=== PATIENT | male | born 1950 | race Caucasian/White ===

== ENCOUNTER → 2016-10-05 | Outpatient (CLI) | payer OTHER, BC | LOC: BHFA 14:00 | PROVIDERS: ATTEND Internal Medicine Cardiovascular Disease | DX: I47.1 Supraventricular tachycardia (principal) ==

== ENCOUNTER → 2016-12-17 | Outpatient (CLI) | payer OTHER, BC | LOC: BHFA 11:15 | PROVIDERS: ATTEND Internal Medicine Cardiovascular Disease | DX: I47.1 Supraventricular tachycardia (principal) ==

== ENCOUNTER 2016-12-28 06:44 | Observation (INO) | payer OTHER, BC ==
[2016-12-28] MEDS ORDERED: MIDAZOLAM 2 MG/2 ML VIAL IVP ONE (06:49)
[2016-12-28] MEDS ORDERED: NS 1,000 ML IV ONE (06:49)
--- NOTE | 2016-12-28 07:36 | CPEKG ---
Heart Rate: 76 RR Interval: 789 P-R Interval: 176 QRSD Interval: 100 QT Interval: 396 QTC Interval: 446 P [place]: 33 QRS [place]: -8 T Wave [place]: 24 EKG Severity - NORMAL ECG - EKG Impression: SINUS RHYTHM Electronically Signed By: Ar Larry 28-Dec-2016 08:35:26
[2016-12-28 08:00] LABS: % IMMATURE GRANULYOCYTES 0.4 % (0.0-1.1); ABSOLUTE IMMATURE GRANULOCYTES 0.05 10^3/uL (0.00-0.10); ADD DIFF? NO; ADD MORPH? NO; ADD SCAN? NO; ATYPICAL LYMPHOCYTE FLAG 0 (0-99); FRAGMENT RBC FLAG 0 (0-99); HEMATOCRIT 41.1 % (40.0-51.0); HEMOGLOBIN 14.3 g/dL (13.7-17.5); LEFT SHIFT FLG 0 (0-99); LIPEMIA HEMOLYSIS FLAG 90 (0-99); MEAN CELL HEMOGLOBIN 32.8 pg (27.9-34.1); MEAN CELL HEMOGLOBIN CONCENTR. 34.8 g/dL (32.4-36.7); MEAN CELL VOLUME 94.3 fL (81.5-99.8); MEAN PLATELET VOLUME 8.9 fL (8.7-11.7); PLATELET CLUMPS FLAG 0 (0-99); PLATELET COUNT 235 10^3/uL (150-400); RED BLOOD CELL COUNT 4.36 10^6/uL (4.40-6.38); RED CELL DISTRIBUTION WIDTH 12.4 % (11.5-15.2)
[2016-12-28 08:08] LABS: INR 1.11 (0.83-1.16); PROTIME(PATIENT) 14.2 SEC (12.0-15.0)
[2016-12-28 08:09] LABS: APTT 28.4 SEC (23.0-38.0)
[2016-12-28] MEDS ORDERED: BUPIVACAINE 0.5% 30 ML SDV ONE (08:10)
[2016-12-28] MEDS ORDERED: ISOPROTERENOL HCL 0.2 MG/ML 5ML AMP ONE (08:10)
[2016-12-28] MEDS ORDERED: LIDOCAINE 1% 30 ML SDV ONE (08:10)
[2016-12-28] MEDS ORDERED: HEPARIN 10,000 UNIT/10 ML MDV ONE ×2 (08:10→09:49)
[2016-12-28 08:21] LABS: ANION GAP 10 mEq/L (8-16); CALCIUM 9.7 mg/dL (8.5-10.4); CARBON DIOXIDE 28 mEq/l (22-31); CHLORIDE 104 mEq/L (97-110); CREATININE 1.2 mg/dL (0.7-1.3); GLOMERULAR FILTRATION RATE > 60; GLUCOSE 108 mg/dL (70-100); MAGNESIUM 1.9 mg/dL (1.6-2.3); SODIUM 142 mEq/L (134-144)
[2016-12-28] MEDS ORDERED: PROPOFOL 200 MG/20 ML VIAL ONE (08:28)
[2016-12-28] MEDS ORDERED: MIDAZOLAM 2 MG/2 ML VIAL ONE (09:15)
[2016-12-28] MEDS ORDERED: IOPAMIDOL (ISOVUE-300) 100 ML BTL IV ONE (09:49)
[2016-12-28] MEDS ORDERED: HEPARIN/DEXTROSE 25,000 UNIT/500 ML BAG IV ONE (09:49)
[2016-12-28] MEDS ORDERED: PROTAMINE SULFATE 50 MG/5 ML VIAL IVP ONE (11:40)
[2016-12-28] MEDS ORDERED: ATROPINE SULFATE 1 MG/10 ML SYR ONE (11:45)
[2016-12-28] MEDS ORDERED: fentaNYL 100 MCG/2 ML INJ ONE (11:49)
[2016-12-28] MEDS ORDERED: PHENYLEPHRINE HCL 100 MCG/ML SYR ONE (11:50)
[2016-12-28] MEDS ORDERED: ONDANSETRON 4 MG/2 ML VIAL IVP PRN (12:19)
--- NOTE | 2016-12-28 12:19 | EPPROC ---
Electrophysiology Procedure Note: ELECTROPHYSIOLOGIC STUDY AND CATHETER MEDIATED ABLATION OF LEFT LATERAL ACCESSORY PATHWAY Procedures performed: 39014-84 EP evaluation with RA/RV/LA pace/record, with arrhythmia induction 91797-76 EP evaluation with RA/RV pace record, insert/reposition catheter, with arrhythmia induction 51965 Intracardiac catheter ablation, SVT arrhythmogenic focus 10245 3D mapping Fluoroscopy INDICATION: Recurrent SVT Severe interstitial lung disease PROCEDURE: Catheters and anesthesia: The patient arrived in the Electrophysiology Laboratory in the fasting state. The right clavicular region, right groin, and left groin area were prepped and draped in the usual sterile manner. Anesthesiologist Dr. Hall administered light sedation (total 2 mg Versed during the procedure) since the patient has severe interstitital lung disease. Appropriate non-invasive blood pressure, pulse oximetry and end-tidal CO2 monitoring was established. All catheters were placed percutaneously using the modified Seldinger technique , and advanced into position under fluoroscopic guidance. One #6 Belgian hexapolar non-deflectable electrode catheter was inserted into the right atrial appendage via the right femoral vein (2mm spacing; except the proximal ring which was 25cm from the tip used for unipolar recordings). One #7 Belgian deflectable octapolar electrode catheter was advanced to the His-bundle position via the right femoral vein (2mm spacing). One #7 Belgian deflectable catheter with 10 pairs of electrodes was placed via the right femoral vein into the coronary sinus. Programmed stimulation of the right atrium, right ventricle and coronary sinus ( left atrium) was performed. Parahisian pacing demonstrated two patterns of retrograde atrial activation during His bundle capture and loss of His bundle capture. This demonstrated the presence of an accessory pathway ( 0400 oclock at the mitral annulus as seen in the ROMANSH view). 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 Ventricular extrastimuli delivered during tachycardia during His bundle refractoriness advanced the next atrial activation with the same retrograde atrial activation sequence proving the tachycardia to be orthodromic AV reentrant tachycardia. Also, spontaneous LBBB during SVT prolonged the VA interval. The patient was administered IV heparin bolus and IV heparin continuous infusion prior to the transseptal puncture and the activated clotting time was maintained ~ 300 seconds during the remainder of the procedure. We decided not to perform transseptal puncture since the patient was awake and had severe intermittent cough. Instead we preferred retro aortic access. F and then D curve catheter was used. One #7 Belgian mapping catheter with a 4 mm tip electrode and a sensor for the [id number] mapping system was inserted via retroaortic approa. Mapping was perfomed during ventricular pacing. A sharp retrograde accessory pathway potential was recorded at 0400 oclock at the mitral annulus as seen in the ROMANSH view. This preceded the earliest atrial activation by 21 ms. RF#1 was delivered to this site. RF#1 blocked conduction in the accessory pathway after 14 seconds of initiation of ablation. Additional RF 2-4 were delivered slightly anterior and posterior to RF1 site. Programmed stimulation from the RA, CS, right and leftventricle during the baseline state post ablation and during infusion of isoproterenol 1 mcg/min confirmed that there was no conduction over the left lateral accessory pathway and no orthodromic AVRT could be induced. Waiting time post ablation 45 minutes. The catheters were removed. Long sheath was exchanged for short sheath. Protamine was administered. The patient was transferred to the cardiovascular holding area in stable condition. Vascular access sheaths were removed in the holding area. There were no apparent complications. Results: A. Spontaneous Intervals: Pre ablation SCL 810 ms AH 70 ms HV 40 ms Post ablation SCL 720 ms AH 65 ms HV 40 ms B. Antegrade AV ayush function (decremental pacing) Pre ablation FPERP 390 ms WBB CL 380 ms Post ablation FPERP 380 ms WBB CL 370 ms C. Retrograde AV ayush function (decremental pacing) Post ablation VA block at 540 ms D. Accessory pathway function 1. A single AV accessory pathway was identified at the mitral annulus at 0400 oclock as seen in the ROMANSH view. 2. The AV accessory pathway conducted in the antegrade and retrograde directions. During ventricular pacing 1:1 conduction over the accessory pathway was maintained to a cycle length of 320 ms, block over the AP occurred at 310 ms. E. Arrhythmias: 1. Atrial premature beats induced orthodromic AV reentrant tachycardia using the left lateral accessory AV pathway. Tachycardia cycle length: 330 ms AH interval 70 ms HV interval 40 ms VA interval (His) 220 ms Shortest VA interval 110 ms at 0400 o clock mitral annulus CONCLUSIONS: 1. A single left lateral accessory pathway, which exhibited conduction in the retrograde direction. 2. 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 3. Successful ablation of the left lateral accessory pathway with elimination of AV reentrant tachycardia. 4. No apparent complications. Patient Problems: Problems Problem Status Onset Interstitial lung disease Acute SVT (supraventricular tachycardia) Acute
[2016-12-28] MEDS ORDERED: ALBUTEROL 60 PUFFS/8 GM MDI IH PRN (12:22)
--- NOTE | 2016-12-28 13:03 | CPEKG ---
Heart Rate: 89 RR Interval: 674 P-R Interval: 192 QRSD Interval: 108 QT Interval: 400 QTC Interval: 487 P Painter: 47 QRS Painter: -3 T Wave Painter: 44 EKG Severity - BORDERLINE ECG - EKG Impression: SINUS RHYTHM EKG Impression: BORDERLINE PROLONGED QT INTERVAL Electronically Signed By: Ar Larry 28-Dec-2016 13:11:33
[2016-12-28] MEDS ORDERED: MISOPROSTOL 200 MCG TAB PO ONE ×2 (13:30→15:30)
[2016-12-28] MEDS ORDERED: DICLOFENAC SODIUM 50 MG TAB PO ONE ×2 (13:30→15:30)
[2016-12-28 14:12] LABS: ANION GAP 10 mEq/L (8-16); CARBON DIOXIDE 26 mEq/l (22-31); CHLORIDE 102 mEq/L (97-110); CREATININE 1.1 mg/dL (0.7-1.3); GLOMERULAR FILTRATION RATE > 60; GLUCOSE 90 mg/dL (70-100); MAGNESIUM 1.8 mg/dL (1.6-2.3); POTASSIUM 3.8 mEq/L (3.5-5.2); SODIUM 138 mEq/L (134-144)
[2016-12-28] MEDS ORDERED: PIRFENIDONE 801 MG PO SCH (16:00)
[2016-12-28] MEDS: PIRFENIDONE 267 MG PO SCH ×2 (16:08→22:26)
[2016-12-28] MEDS ORDERED: QUEtiapine FUMARATE 50 MG TAB PO SCH (21:00)
[2016-12-29 04:31] LABS: % IMMATURE GRANULYOCYTES 0.4 % (0.0-1.1); ABSOLUTE IMMATURE GRANULOCYTES 0.04 10^3/uL (0.00-0.10); ADD DIFF? NO; ADD MORPH? NO; ADD SCAN? NO; ATYPICAL LYMPHOCYTE FLAG 0 (0-99); FRAGMENT RBC FLAG 0 (0-99); HEMATOCRIT 36.9 % (40.0-51.0); HEMOGLOBIN 12.4 g/dL (13.7-17.5); LEFT SHIFT FLG 0 (0-99); LIPEMIA HEMOLYSIS FLAG 80 (0-99); MEAN CELL HEMOGLOBIN 32.1 pg (27.9-34.1); MEAN CELL HEMOGLOBIN CONCENTR. 33.6 g/dL (32.4-36.7); MEAN CELL VOLUME 95.6 fL (81.5-99.8); MEAN PLATELET VOLUME 9.1 fL (8.7-11.7); PLATELET CLUMPS FLAG 0 (0-99); PLATELET COUNT 191 10^3/uL (150-400); RED BLOOD CELL COUNT 3.86 10^6/uL (4.40-6.38); RED CELL DISTRIBUTION WIDTH 12.5 % (11.5-15.2)
[2016-12-29 04:46] LABS: INR 1.12 (0.83-1.16); PROTIME(PATIENT) 14.3 SEC (12.0-15.0)
[2016-12-29 04:51] LABS: ANION GAP 7 mEq/L (8-16); CALCIUM 9.1 mg/dL (8.5-10.4); CARBON DIOXIDE 25 mEq/l (22-31); CHLORIDE 104 mEq/L (97-110); GLOMERULAR FILTRATION RATE > 60; GLUCOSE 83 mg/dL (70-100); SODIUM 136 mEq/L (134-144)
[2016-12-29 04:57] LABS: CREATINE KINASE-MB FRACTION 1.72 ng/mL (0-3.19); TROPONIN I 0.469 ng/mL (0-0.034)
[2016-12-29] MEDS ORDERED: LEVOTHYROXINE 137 MCG TAB PO SCH (06:00)
[2016-12-29 07:41] VITALS: BP 104/78; PULSE 84; RESP 20; TEMP 98.6; O2SAT 95
[2016-12-29] MEDS: PIRFENIDONE 267 MG PO SCH (08:11)
[2016-12-29] MEDS ORDERED: ENOXAPARIN 40 MG/0.4 ML SYR SC SCH (09:00)
[2016-12-29] MEDS ORDERED: DICLOFENAC SODIUM PO SCH (09:00)
[2016-12-29] MEDS ORDERED: predniSONE 5 MG TAB PO SCH (09:00)
[2016-12-29] MEDS ORDERED: DICLOFENAC SODIUM 50 MG TAB PO SCH (09:00)
[2016-12-29] MEDS ORDERED: [UNRECOGNIZED DRUG - OTHER] PO SCH (09:00)
[2016-12-29] MEDS ORDERED: CETIRIZINE 10 MG TAB PO SCH (09:00)
[2016-12-29] MEDS ORDERED: MISOPROSTOL PO SCH (09:00)
[2016-12-29] MEDS ORDERED: TRIAMTERENE/HCTZ 37.5/25 1 EACH TAB PO SCH ×2 (09:00)
[2016-12-29] MEDS ORDERED: MISOPROSTOL 200 MCG TAB PO SCH (09:00)
--- NOTE | 2016-12-29 09:04 | CPEKG ---
Heart Rate: 74 RR Interval: 811 P-R Interval: 176 QRSD Interval: 100 QT Interval: 396 QTC Interval: 440 P [place]: 35 QRS [place]: -13 T Wave [place]: 33 EKG Severity - NORMAL ECG - EKG Impression: SINUS RHYTHM Electronically Signed By: Ar Larry 29-Dec-2016 09:08:04
--- NOTE | 2016-12-29 11:24 | ECHO ---
[id number] + + [address] : : [place] [address] : : [phone] + + Adult Echocardiographic Report + + :Name: GIANNA FRANKEL LStudy Date: 12/29/2016 09:00 AM : : Hospital Admission Number: [id number] Lo cation: 212: :: 1950 Gender: Male Height: 72 in : :Age: 66 yrs Race: WH Weight: 25 0 lb : :Reason For Study: SVT/F/U post EP study : : BSA: 2.3 m eters2 : + + MMode/2D Measurements \T\ Calculations IVSd: 0.85 cm LVIDd: 6.1 cm FS: 38.6 % Ao root diam: LVPWd: 0.99 cm LVIDs: 3.8 cm EDV(Teich): 4.3 cm 188.1 ml LA dimension: ESV(Teich): 4.4 cm 60.4 ml EF(Teich): 67.9 % LVLd ap4: 7.6 cm SV(MOD-sp4): EDV(MOD-sp4): 45.0 ml 72.0 ml LVLs ap4: 6.4 cm ESV(MOD-sp4): 27.0 ml EF(MOD-sp4): 62.5 % Normal Measurement Values: + + :LVIDd (3.5-5.7cm) IVSd (0.6-1.1cm) LVPWd (0.6-1.1cm) Aortic Root (2.0-3.7cm)Left Atrium (1.5-4.0cm): :LV Vol(d) (76-115ml) LV Vol(s) (29-48ml) Ejec Fraction (50-65%)PV Piero (0.6- 1.2m/s) TV Piero (0.4-1.0m/s) : :MV E Piero (0.8-1.0m/s)MV A Piero (0.3-1.0m/s)LVOT Piero (0.7-1.2m/s) Asc Ao Piero ( 0.9-1.8m/s) : + + Doppler Measurements \T\ Calculations MV E max piero: 58.2 cm/sec Ao V2 max: 111.3 cm/sec TR max piero: 264.7 cm/sec MV A max piero: 71.6 cm/sec Ao max P.0 mmHg TR max P.0 mmHg MV E/A: 0.81 RAP systole: 5.0 mmHg RVSP(TR): 33.0 mmHg Left Ventricle The left ventricle is mildly dilated. There is normal left ventricular wall thickness. Left ventricular systolic function is normal. Ejection Fraction = 60-65%. No regional wall motion abnormalities noted. Right Ventricle RV is mildly dilated with mildly reduced systolic function. Atria The left atrial size is normal. Right atrial size is normal. The interatrial septum is intact with no evidence for an atrial septal defect. Mitral Valve The mitral valve is normal in structure and function. There is no evidence of mitral valve prolapse. There is no mitral valve stenosis. There is mild mitral regurgitation. Tricuspid Valve Normal tricuspid valve. There is mild tricuspid regurgitation. Right ventricular systolic pressure is normal. Aortic Valve The aortic valve is trileaflet. The aortic valve opens well. There is no aortic stenosis. There is no aortic insufficiency. Pulmonic Valve The pulmonic valve is normal in structure and function. There is no pulmonic valvular regurgitation. Great Vessels The aortic root is normal size. Pericardium/Pleural There is no pericardial effusion. Conclusion A complete two-dimensional transthoracic echocardiogram was performed (2D, M-mode, Doppler and color flow Doppler). The left ventricle is mildly dilated. Left ventricular systolic function is normal. Ejection Fraction = 60-65%. RV is mildly dilated with mildly reduced systolic function There is mild mitral regurgitation. There is mild tricuspid regurgitation. Right ventricular systolic pressure is normal. There is no pericardial effusion. Final Reading Physician: Dr Yokasta Navas electronically signed on 12/29/2016 11:23 AM Ordering Physician: Jason Mejia Performed By: Raquel Hernandez, CS
--- NOTE | 2016-12-29 13:23 | GDS ---
[f rep st] DISCHARGE SUMMARY ADMIT DIAGNOSES: 1. Supraventricular tachycardia. 2. Planned electrophysiology study with possible ablation. 3. Severe interstitial lung disease. DISCHARGE DIAGNOSES: 1. Supraventricular tachycardia. 2. Successful left lateral accessory pathway ablation with no complications. 3. Severe interstitial lung disease.. HISTORY OF PRESENT ILLNESS: This gentleman was evaluated in clinic by Dr. Jason Mejia. He failed me dical therapy, having recurrent SVT episodes in addition to his known severe interstitial lung disea se. HOSPITAL COURSE: He was taken to the EP lab by Dr. Jason Mejia on December 28, 2016, where he was able t o successfully performed catheter mediated ablation of the left lateral accessory pathway. There we re no complications. He was taken to the CBC for recovery, then to PCU for overnight observation, w here he has done well. He has been up ambulating, groin sites have remained stable and he has had n o episodes of palpitations. At this time, he currently is stable for discharge. Exam on the day of discharge: Blood pressure 104/78, heart rate 84 and regular, oxygen saturation 9 5%, temperature 37 Celsius. EKG showed a normal sinus rhythm. Additionally, he uses CPAP with oxyg en at night. Heart rate is regular. No murmurs, rubs, or gallops. Lung sounds are clear to auscul tation. No wheezes, rales, or rhonchi. He does have diminished lower lobe lung sounds. The abdome n is soft and nontender. Bilateral groin sites are intact with no bleeding, induration or ecchymose s. Peripheral pulses are 2+ bilateral with no edema. ALLERGIES: He does have allergies to acetaminophen, codeine, penicillins. DISCHARGE MEDICATIONS: He will go home on Seroquel 50 at bedtime, Synthroid 137 mcg daily, herbal v itamins and supplements 1 daily, Zyrtec 10 mg daily, Esbriet 801 mg 3 times a day, fish oil 1000 mg daily, vitamin D3 5000 units daily, multivitamin 1 daily, vitamin C 1000 mg daily, prednisone 5 mg e very 2 days, prednisone 2.5 mg every 2 days alternating, albuterol 1-2 puffs inhaled 4 times a day a s needed, diclofenac 1-2 orally daily, Eliquis 2.5 mg twice daily (first dose this evening). MEDICATIONS STOPPED: Diltiazem 180 mg daily and triamterene/hydrochlorothiazide 37.5/25 mg tablets daily. REPORTS: Electrophysiology study done on 12/28/[address] Jason Mejia: Indication, recurrent SVT a nd severe interstitial lung disease. PROCEDURES: 1. EP evaluation with arrhythmia induction. 2. EP evaluation insert/reposition catheter with arrhythmia. 3. Intracardiac catheter ablation SVT arrhythmogenic focus. Overall, electrophysiology procedure. 4. Electrophysiology study and catheter mediated ablation of left lateral accessory pathway. 5. Echocardiogram done on 12/29/2016 shows his EF as normal, 60% to 65%. Mild mitral and tricuspid regurgitation. RVSP normal. No pericardial effusion. 6. EKG on 12/29/2016 shows a heart rate of 74, regular sinus rhythm. No arrhythmias. DISCHARGE PLAN: 1. He will follow up with Dr. Mejia in 4 weeks. This appointment has been made. 2. Groin precautions were reviewed, written and verbal. No heavy lifting, pushing or pulling great er than 10 pounds for 1 week then gradually resume. No aggressive exercise for 2 weeks. 3. At 1 he can gradually resume low level exercise. 4. Avoid constipation, splint groin sites for bowel movements. 5. Should sites bleed, hold continuous pressure and/or go to the nearest ER. 6. For further questions, call the office and ask for Dr. Mejia's nurse. 7. He is asked to follow a cardiac, low-fat, low-sodium diet. At this time, he currently is stable for discharge. /[id number]/MODL
[2016-12-29] MEDS ORDERED: APIXABAN 2.5 MG TAB PO SCH (21:00)
[2016-12-30] MEDS ORDERED: NON-FORMULARY NEW DRUG (Prednisone [Prednisone] 2.5 MG) PO SCH (09:00)
[2016-12-30] MEDS ORDERED: predniSONE 5 MG TAB PO SCH (09:00)
== END 2016-12-29 12:35 | disposition home or self-care (01) ==
LOC: FCATH 06:44 → F2W 12:14
PROVIDERS: ADMIT Internal Medicine Cardiovascular Disease; ATTEND Internal Medicine Cardiovascular Disease
DX: I47.1 Supraventricular tachycardia (principal); G47.33 Obstructive sleep apnea (adult) (pediatric); E03.9 Hypothyroidism, unspecified; J84.10 Pulmonary fibrosis, unspecified
CPT/HCPCS: 93005; 93306; 93613; 93621; 93623; 93653; 97165; C1730; C1731; C1732; C1760; G8987; G8988; G8989; J1644; J1650; J2250; J2370; J2704; J2720; J3010; Q9967; J0461

== ENCOUNTER → 2017-01-21 | Outpatient (CLI) | payer OTHER, BC | LOC: BHFA 10:45 | PROVIDERS: ATTEND Internal Medicine Cardiovascular Disease | DX: I47.1 Supraventricular tachycardia (principal) ==

== ENCOUNTER 2017-07-11 18:39 | Inpatient (IN) | payer OTHER, BC ==
--- NOTE | 2017-07-11 18:46 | EDPHY ---
H & P Time Seen by Provider: 07/11/17 18:45 - Medical/Surgical History Hx Asthma: No Hx Chronic Respiratory Disease: Yes Hx Diabetes: No Hx Cardiac Disease: No Hx Renal Disease: No Hx Cirrhosis: No Hx Alcoholism: No Hx HIV/AIDS: No Hx Splenectomy or Spleen Trauma: No Other PMH: SVT, interstitial lung disease, back surgery, HTN, neck injury, - Social History Smoking Status: Former smoker Constitutional: Initial Vital Signs Temperature (C) 36.6 C 07/11/17 18:50 Heart Rate 122 H 07/11/17 18:50 Respiratory Rate 30 H 07/11/17 18:50 Blood Pressure 161/105 H 07/11/17 18:50 O2 Sat (%) 96 07/11/17 18:50 O2 Delivery Mode Non-Rebreather Mask O2 (L/minute) 15 Allergies/Adverse Reactions: acetaminophen [From Darvocet-N] Allergy (Verified 02/26/16 10:57) Vomiting codeine Allergy (Verified 12/28/16 08:31) Vomiting Penicillins Allergy (Verified 02/26/16 10:57) Hives propoxyphene napsylate [From Darvocet-N] Allergy (Verified 02/26/16 10:57) Vomiting Sulfa (Sulfonamide Antibiotics) Allergy (Verified 02/26/16 10:57) Hives Home Medications: Medication Instructions Recorded Albuterol Hfa Anes Only [Proair 2 puffs IH QID PRN 07/11/17 Hfa Icu (*)] Ascorbic Acid [Vitamin C 500 mg 1,000 mg PO DAILY 07/11/17 (*)] Cetirizine [ZyrTEC 10 mg (*)] 10 mg PO DAILY 07/11/17 Cholecalciferol Vit D3 [Vitamin D3 5,000 units PO DAILY 07/11/17 (*)] Diclofenac Sodium/Misoprostol 1 each PO BID PRN 07/11/17 [Diclofenac-Misoprost 50-200 Tb] Guaifen/Phenyleph 400mg/5mg 1 tab PO Q3H PRN 07/11/17 Herbals/Supplements -Info Only 1 ea PO DAILY 07/11/17 Levothyroxine [Synthroid 137 mcg 137 mcg PO DAILY06 07/11/17 (*)] Multivitamins [Multivitamin (*)] 1 each PO DAILY 07/11/17 Frederick-3 Fatty Acids [Frederick-3] 1,000 mg PO BID 07/11/17 Pirfenidone [Esbriet] 801 mg PO TID@06,12,18 07/11/17 QUEtiapine FUMARATE [Seroquel 50 50 - 100 mg PO HS PRN 07/11/17 mg (*)] guaiFENesin [Mucinex] 1,200 mg PO BID 07/11/17 predniSONE [Prednisone] 10 mg PO DAILY 07/11/17 Medical Decision Making - Diagnostics Imaging Results: Imaging Impressions Chest X-Ray 07/11/17 19:26 Impression: Fluid overload/edema/viral pneumonitis superimposed on interstitial lung disease. Imaging: I viewed and interpreted images myself ED Course/Re-evaluation: CHIEF COMPLAINT: Dyspnea, hypoxemia HISTORY OF PRESENT ILLNESS: The patient is a 66 y/o male with a history of pulmonary fibrosis arriving with his family complaining of dyspnea, cough, and hypoxemia. He is currently attempting to get on the lung transplant list. Last spring he was placed on a home O2 concentrator and was able to maintain his saturation with that for a while. Recently, he's transitioned onto multiple concentrators plus an oxygen bottle to stay at 15-30LPM O2 via modified CPAP mask. They are having difficulty maintaining his SpO2 with this set up and are running out of O2 bottles. His dyspnea is worse with any exertion. Today when he got up to walk, his SpO2 dropped significantly and took 1-2 hours to return to baseline. He denies any recent illness, fever, myalgias, vomiting, or other symptoms. REVIEW OF SYSTEMS: A 10 point review of systems was performed and is negative with the exception of the elements mentioned in the history of present illness. PHYSICAL EXAM: HR, BP, O2 Sat 97% on NRB @ 20LPM, RR. Temp noted General Appearance: Alert, well hydrated, appropriate, and non-toxic appearing. Head: Atraumatic without scalp tenderness or obvious injury Eyes: Pupils equal, round, reactive to light and accommodation, EOMI, no trauma , no injection. Nose: Atraumatic, no rhinorrhea, clear. Throat: Mucus membranes moist. Neck: Supple, nontender, no lymphadenopathy. Respiratory: Increased work of breathing and tachypnea. Cardiovascular: Regular rate and rhythm, no murmurs, rubs, or gallops. Good capillary refill all extremities. Gastrointestinal: Abdomen is soft, nontender, non-distended, no masses, no rebound, no guarding, no peritoneal signs. Musculoskeletal: Normal active ROM of all extremities, atraumatic. Neurological: Alert, appropriate, and interactive. The patient has non-focal cranial nerves, motor, sensory, and cerebellar exam. Skin: No rashes, good turgor, no nodules on palpation. Past medical history: idiopathic pulmonary fibrosis, multifocal atrial tachycardia Past surgical history: noncontributory Family history: noncontributory Social history: Family at bedside. Lives in [place]. 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 DIAGNOSTICS/PROCEDURES/CRITICAL CARE TIME: Chest x-ray: interstitial lung disease. DIFFERENTIAL DIAGNOSIS: The differential diagnosis for the patient's shortness of breath and hypoxemia included but was not limited to worsening pulmonary fibrosis, pneumonia, myocardial infarction, acute mountain sickness, high altitude pulmonary edema, congestive heart failure, and pulmonary embolus. MEDICAL DECISION MAKIN: Consulted with Dr. Cortez, [employer] pulmonary critical care doctor. He has not been accepted onto the transplant list yet, so she is unable to do anything more for him at their facility as opposed to ours in the acute set. She recommends admission ad keeping O2 levels up. She will try to get a rapid assessment done with the transplant team to determine definitive treatment option sooner. IV established. Labs drawn. We will not repeat imaging other than chest x-ray as he recently had extensive workup done at [employer]. Spoke with hospitalist service. Dr. Beckett accepts admission to step down unit for [id number] hypoxemia and pulmonary fibrosis. 1999: Consulted with Dr. Interiano, pulmonology. He will follow patient's admission. Troponin minimally elevated, which is consistent with some associated right heart strain. - Data Points Laboratory Results: Laboratory Results 07/11/17 18:50 07/11/17 18:50 07/11/17 07/11/17 07/11/17 18:50 18:50 18:47 WBC 14.65 10^3/uL H 10^3/uL (3.80-9.50) RBC 4.66 10^6/uL 10^6/uL (4.40-6.38) Hgb 15.1 g/dL g/dL (13.7-17.5) POC Hgb 16.3 gm/dL gm/dL (13.7-17.5) Hct 44.6 % % (40.0-51.0) POC Hct 48 % % (40-51) MCV 95.7 fL fL (81.5-99.8) MCH 32.4 pg pg (27.9-34.1) MCHC 33.9 g/dL g/dL (32.4-36.7) RDW 13.1 % % (11.5-15.2) Plt Count 317 10^3/uL 10^3/uL (150-400) MPV 9.4 fL fL (8.7-11.7) Neut % (Auto) 89.0 % H % (39.3-74.2) Lymph % (Auto) 4.8 % L % (15.0-45.0) Coos % (Auto) 4.6 % % (4.5-13.0) Eos % (Auto) 0.8 % % (0.6-7.6) Baso % (Auto) 0.4 % % (0.3-1.7) Nucleat RBC Rel Count 0.0 % % (0.0-0.2) Absolute Neuts (auto) 13.05 10^3/uL H 10^3/uL (1.70-6.50) Absolute Lymphs (auto) 0.70 10^3/uL L 10^3/uL (1.00-3.00) Absolute Monos (auto) 0.67 10^3/uL 10^3/uL (0.30-0.80) Absolute Eos (auto) 0.11 10^3/uL 10^3/uL (0.03-0.40) Absolute Basos (auto) 0.06 10^3/uL 10^3/uL (0.02-0.10) Absolute Nucleated RBC 0.00 10^3/uL 10^3/uL (0-0.01) Immature Gran % 0.4 % % (0.0-1.1) Immature Gran # 0.06 10^3/uL 10^3/uL (0.00-0.10) POC Sodium 142 mEq/L mEq/L (134-144) Sodium 141 mEq/L mEq/L (134-144) POC Potassium 4.4 mEq/L mEq/L (3.3-5.0) Potassium 4.6 mEq/L mEq/L (3.5-5.2) POC Chloride 102 mEq/L mEq/L (97-110) Chloride 100 mEq/L mEq/L (97-110) Carbon Dioxide 29 mEq/l mEq/l (22-31) Anion Gap 12 mEq/L mEq/L (8-16) POC BUN 22 mg/dL mg/dL (7-23) BUN 21 mg/dL mg/dL (7-23) Creatinine 1.1 mg/dL mg/dL (0.7-1.3) POC Creatinine 1.3 mg/dL mg/dL (0.7-1.3) Estimated GFR > 60 Glucose 138 mg/dL H mg/dL (70-100) POC Glucose 137 mg/dL H mg/dL (70-100) Calcium 10.3 mg/dL mg/dL (8.5-10.4) Troponin I 0.054 ng/mL H ng/mL (0.000-0.034) NT-Pro-B Natriuret Pep 1450 pg/mL H pg/mL (0-125) Point of Care Test Results: 07/11/17 18:47 POC Sodium 142 POC Potassium 4.4 POC Chloride 102 POC BUN 22 POC Creatinine 1.3 POC Glucose 137 H Departure - Departure Disposition: [facility] [place] Inpatient Acute Clinical Impression: Hypoxemia, Pulmonary fibrosis Condition: Fair Report Scribed for: Hemanth Loja Report Scribed by: Suzy De León Date of Report: 07/11/17 Time of Report: 19:08
[2017-07-11 19:31] LABS: % IMMATURE GRANULYOCYTES 0.4 % (0.0-1.1); ABSOLUTE IMMATURE GRANULOCYTES 0.06 10^3/uL (0.00-0.10); ADD DIFF? NO; ADD MORPH? NO; ADD SCAN? NO; ATYPICAL LYMPHOCYTE FLAG 0 (0-99); FRAGMENT RBC FLAG 0 (0-99); HEMATOCRIT 44.6 % (40.0-51.0); HEMOGLOBIN 15.1 g/dL (13.7-17.5); LEFT SHIFT FLG 0 (0-99); LIPEMIA HEMOLYSIS FLAG 90 (0-99); MEAN CELL HEMOGLOBIN 32.4 pg (27.9-34.1); MEAN CELL HEMOGLOBIN CONCENTR. 33.9 g/dL (32.4-36.7); MEAN CELL VOLUME 95.7 fL (81.5-99.8); MEAN PLATELET VOLUME 9.4 fL (8.7-11.7); PLATELET CLUMPS FLAG 10 (0-99); PLATELET COUNT 317 10^3/uL (150-400); RED BLOOD CELL COUNT 4.66 10^6/uL (4.40-6.38); RED CELL DISTRIBUTION WIDTH 13.1 % (11.5-15.2)
[2017-07-11 19:37] LABS: ANION GAP 12 mEq/L (8-16); CALCIUM 10.3 mg/dL (8.5-10.4); CARBON DIOXIDE 29 mEq/l (22-31); CHLORIDE 100 mEq/L (97-110); CREATININE 1.1 mg/dL (0.7-1.3); GLOMERULAR FILTRATION RATE > 60; GLUCOSE 138 mg/dL (70-100); POTASSIUM 4.6 mEq/L (3.5-5.2); SODIUM 141 mEq/L (134-144)
[2017-07-11 19:49] LABS: TROPONIN I 0.054 ng/mL (0.000-0.034)
[2017-07-11] MEDS ORDERED: ONDANSETRON 4 MG/2 ML VIAL IVP PRN (22:19)
[2017-07-11] MEDS ORDERED: ACETAMINOPHEN 325 MG TAB PO PRN (22:19)
[2017-07-11] MEDS ORDERED: ONDANSETRON DISINTEGRATING 4 MG TAB PO PRN (22:19)
[2017-07-11] MEDS ORDERED: FUROSEMIDE 20 MG/2 ML VIAL IVP ONE (22:23)
[2017-07-11] MEDS ORDERED: ALBUTEROL 200 PUFFS/18 GM MDI IH PRN (22:49)
[2017-07-11] MEDS: GUAIFENESIN PO PRN (23:25)
[2017-07-11] MEDS: PHENYLEPHRINE PO PRN (23:25)
--- NOTE | 2017-07-12 00:24 | PDGENHP ---
History and Physical - Chief Complaint Shortness of breath - History of Present Illness 66 yo M w/ hx of advanced pulmonary fibrosis presents with shortness of breath. Per patient, he was diagnosed 1 year ago. Since, he has experienced a steady decline in lung function and required increasing amounts of oxygen to maintain sats. He is currently using ~15-17 L at home with the help of two concentrators. He underwent a series of tests at [facility] last week, which he states significantly fatigued him. Since, he has experienced increased dyspnea and O2 needs, needing to add additional O2 bottles to his concentrators over the last few days. He and his family were having difficulty keeping up with his O2 needs so he came to the ED for help. He denies recent illness, symptoms of viral infection, fevers, or sick contacts. In the ED patient is stable on 15L via mask. He is no respiratory distress. CXR shows significant interstitial disease and possible overlying edema. History Information - Allergies/Home Medication List Allergies/Adverse Reactions: acetaminophen [From Darvocet-N] Allergy (Verified 02/26/16 10:57) Vomiting codeine Allergy (Verified 12/28/16 08:31) Vomiting Penicillins Allergy (Verified 02/26/16 10:57) Hives propoxyphene napsylate [From Darvocet-N] Allergy (Verified 02/26/16 10:57) Vomiting Sulfa (Sulfonamide Antibiotics) Allergy (Verified 02/26/16 10:57) Hives Home Medications: Albuterol Hfa Anes Only [Proair Hfa Icu (*)] 2 puffs IH QID PRN 07/11/17 [Last Taken Unknown] Ascorbic Acid [Vitamin C 500 mg (*)] 1,000 mg PO DAILY 07/11/17 [Last Taken ] Cetirizine [ZyrTEC 10 mg (*)] 10 mg PO DAILY 07/11/17 [Last Taken 07/11/17] Cholecalciferol Vit D3 [Vitamin D3 (*)] 5,000 units PO DAILY 07/11/17 [Last Taken 07/11/17] Diclofenac Sodium/Misoprostol [Diclofenac-Misoprost 50-200 Tb] 1 each PO BID PRN 07/11/17 [Last Taken 07/11/17] Guaifen/Phenyleph 400mg/5mg 1 tab PO Q3H PRN 07/11/17 [Last Taken 07/11/17 18:00 ] Herbals/Supplements -Info Only 1 ea PO DAILY 07/11/17 [Last Taken 07/11/17] Levothyroxine [Synthroid 137 mcg (*)] 137 mcg PO DAILY06 07/11/17 [Last Taken ] Multivitamins [Multivitamin (*)] 1 each PO DAILY 07/11/17 [Last Taken 07/11/17] Sherrill-3 Fatty Acids [Sherrill-3] 1,000 mg PO BID 07/11/17 [Last Taken 07/11/17] Pirfenidone [Esbriet] 801 mg PO TID@,,18 07/11/17 [Last Taken 07/11/17 18:00 ] QUEtiapine FUMARATE [Seroquel 50 mg (*)] 50 - 100 mg PO HS PRN 07/11/17 [Last Taken Unknown] guaiFENesin [Mucinex] 1,200 mg PO BID 07/11/17 [Last Taken 07/11/17 18:00] predniSONE [Prednisone] 10 mg PO DAILY 07/11/17 [Last Taken 07/11/17] I have personally reviewed and updated: family history, medical history - Past Medical History Additional medical history: Pulmonary fibrosis - Family History Positive for: cancer - Social History Smoking Status: Former smoker Review of Systems Review of Systems: ROS: 10pt was reviewed & negative except for what was stated in HPI & below Physical Exam Physical Exam: Temp Pulse Resp BP Pulse Ox 36.6 C 112 H 28 H 106/80 91 L 07/11/17 21:37 07/12/17 00:00 07/12/17 00:00 07/12/17 00:00 07/12/17 00:00 O2 (L/minute) 20 FIO2 (%) 100 Constitutional: no apparent distress, not in pain Eyes: PERRL, EOMI Ears, Nose, Mouth, Throat: moist mucous membranes, no oral mucosal ulcers Cardiovascular: regular rate and rhythym, no murmur, rub, or gallop, No edema Respiratory: no respiratory distress, reduced air movement, inspiratory crackles (Most prominent at bilateral bases) Gastrointestinal: normoactive bowel sounds, soft, non-tender abdomen Skin: warm, normal color Musculoskeletal: full muscle strength, no muscle tenderness Neurologic: AAOx3, CN II-XII Intact Psychiatric: interacting appropriately, not anxious Lab Data & Imaging Review 07/11/17 18:50 07/11/17 18:50 WBC 14.65 10^3/uL (3.80-9.50) H 07/11/17 18:50 RBC 4.66 10^6/uL (4.40-6.38) 07/11/17 18:50 Hgb 15.1 g/dL (13.7-17.5) 07/11/17 18:50 POC Hgb 16.3 gm/dL (13.7-17.5) 07/11/17 18:47 Hct 44.6 % (40.0-51.0) 07/11/17 18:50 POC Hct 48 % (40-51) 07/11/17 18:47 MCV 95.7 fL (81.5-99.8) 07/11/17 18:50 MCH 32.4 pg (27.9-34.1) 07/11/17 18:50 MCHC 33.9 g/dL (32.4-36.7) 07/11/17 18:50 RDW 13.1 % (11.5-15.2) 07/11/17 18:50 Plt Count 317 10^3/uL (150-400) 07/11/17 18:50 MPV 9.4 fL (8.7-11.7) 07/11/17 18:50 Neut % (Auto) 89.0 % (39.3-74.2) H 07/11/17 18:50 Lymph % (Auto) 4.8 % (15.0-45.0) L 07/11/17 18:50 [place] % (Auto) 4.6 % (4.5-13.0) 07/11/17 18:50 Eos % (Auto) 0.8 % (0.6-7.6) 07/11/17 18:50 Baso % (Auto) 0.4 % (0.3-1.7) 07/11/17 18:50 Nucleat RBC Rel Count 0.0 % (0.0-0.2) 07/11/17 18:50 Absolute Neuts (auto) 13.05 10^3/uL (1.70-6.50) H 07/11/17 18:50 Absolute Lymphs (auto) 0.70 10^3/uL (1.00-3.00) L 07/11/17 18:50 Absolute Monos (auto) 0.67 10^3/uL (0.30-0.80) 07/11/17 18:50 Absolute Eos (auto) 0.11 10^3/uL (0.03-0.40) 07/11/17 18:50 Absolute Basos (auto) 0.06 10^3/uL (0.02-0.10) 07/11/17 18:50 Absolute Nucleated RBC 0.00 10^3/uL (0-0.01) 07/11/17 18:50 Immature Gran % 0.4 % (0.0-1.1) 07/11/17 18:50 Immature Gran # 0.06 10^3/uL (0.00-0.10) 07/11/17 18:50 POC Sodium 142 mEq/L (134-144) 07/11/17 18:47 Sodium 141 mEq/L (134-144) 07/11/17 18:50 POC Potassium 4.4 mEq/L (3.3-5.0) 07/11/17 18:47 Potassium 4.6 mEq/L (3.5-5.2) 07/11/17 18:50 POC Chloride 102 mEq/L (97-110) 07/11/17 18:47 Chloride 100 mEq/L (97-110) 07/11/17 18:50 Carbon Dioxide 29 mEq/l (22-31) 07/11/17 18:50 Anion Gap 12 mEq/L (8-16) 07/11/17 18:50 POC BUN 22 mg/dL (7-23) 07/11/17 18:47 BUN 21 mg/dL (7-23) 07/11/17 18:50 Creatinine 1.1 mg/dL (0.7-1.3) 07/11/17 18:50 POC Creatinine 1.3 mg/dL (0.7-1.3) 07/11/17 18:47 Estimated GFR > 60 07/11/17 18:50 Glucose 138 mg/dL (70-100) H 07/11/17 18:50 POC Glucose 137 mg/dL (70-100) H 07/11/17 18:47 Calcium 10.3 mg/dL (8.5-10.4) 07/11/17 18:50 Troponin I 0.054 ng/mL (0.000-0.034) H 07/11/17 18:50 NT-Pro-B Natriuret Pep 1450 pg/mL (0-125) H 07/11/17 18:50 Imaging Review: CXR with volume overload superimposed on ILD. Visualized and Interpreted Chest x-ray results: Yes Chest X-Ray results: other (Edema superimposed on ILD) Assessment & Plan Assessment: 66 yo M w/ pulmonary fibrosis presents with SOB and worsening hypoxemia. Plan: 1. Acute on chronic hypoxic respiratory failure - I suspect a large part of this is due to progression of underlying fibrosis. Patient denies symptoms of infection or sick contacts although he does have a mild increase in WBC, afebrile. CXR notable for edema overlying ILD. Last TTE had normal EF without left-sided diastolic dysfunction, so would seem odd to have developed cardiogenic edema in the interim, but he does have mild BNP elevation. - Respiratory viral panel - Trial Lasix 20 mg IV x1 - Will hold off on echocardiogram as patient states he had this last week at [facility] - May benefit form increased immunosuppression, will defer this to pulmonary service - Pulmonary service consulted 2. Pulmonary fibrosis - Seemingly idiopathic; although majority of records at [facility] where he is undergoing transplant evaluation. Dr. Cortez at [facility] called on admission and she states patient is not yet on transplant list, but they will discuss case and attempt to expedite if possible. - Continue home prednisone 10 mg qD and pirfenidone - Consider increase in immunosuppressive regimen - Additional management as above 3. Indeterminate troponin - .054 on admission in the setting of respiratory distress, suspect demand ischemia. Will trend enzymes to assure not rising. Diet - Regular Code - Full Ppx - LMWH Dispo - Admit to inpatient status noting need for 15+ L O2 and additional evaluation, pulmonary consultation. I personally spent 60 minutes of critical are time evaluation patient, reviewing data, and coordinating care.
[2017-07-12] MEDS: PHENYLEPHRINE PO PRN ×4 (03:56→18:17)
[2017-07-12] MEDS: GUAIFENESIN PO PRN ×4 (03:56→18:17)
[2017-07-12 04:30] LABS: % IMMATURE GRANULYOCYTES 0.5 % (0.0-1.1); ABSOLUTE IMMATURE GRANULOCYTES 0.06 10^3/uL (0.00-0.10); ADD DIFF? NO; ADD MORPH? NO; ADD SCAN? NO; ATYPICAL LYMPHOCYTE FLAG 0 (0-99); FRAGMENT RBC FLAG 0 (0-99); HEMATOCRIT 39.8 % (40.0-51.0); HEMOGLOBIN 13.7 g/dL (13.7-17.5); LEFT SHIFT FLG 0 (0-99); LIPEMIA HEMOLYSIS FLAG 90 (0-99); MEAN CELL HEMOGLOBIN 32.9 pg (27.9-34.1); MEAN CELL HEMOGLOBIN CONCENTR. 34.4 g/dL (32.4-36.7); MEAN CELL VOLUME 95.7 fL (81.5-99.8); MEAN PLATELET VOLUME 9.1 fL (8.7-11.7); PLATELET CLUMPS FLAG 0 (0-99); PLATELET COUNT 235 10^3/uL (150-400); RED BLOOD CELL COUNT 4.16 10^6/uL (4.40-6.38)
[2017-07-12 04:51] LABS: ANION GAP 9 mEq/L (8-16); CALCIUM 9.9 mg/dL (8.5-10.4); CARBON DIOXIDE 29 mEq/l (22-31); CHLORIDE 100 mEq/L (97-110); CREATININE 0.9 mg/dL (0.7-1.3); GLOMERULAR FILTRATION RATE > 60; GLUCOSE 98 mg/dL (70-100); SODIUM 138 mEq/L (134-144)
[2017-07-12 05:01] LABS: TROPONIN I 0.082 ng/mL (0.000-0.034)
[2017-07-12] MEDS: PIRFENIDONE 267 MG PO SCH ×3 (05:59→18:18)
[2017-07-12] MEDS: LEVOTHYROXINE 137 MCG TAB PO SCH (06:00)
--- NOTE | 2017-07-12 07:54 | PDMN ---
Medical Necessity Medical necessity: est los>2mn for acute on chronic hypoxic resp failure, idiopathic pulmonary fibrosis, and indeterminate troponin; admit to ICU with O2 needs at 15L, for pulm consult, and further eval; per order and H&P 07/11/17
[2017-07-12] MEDS: OMEGA-3 FATTY ACIDS 1,000 MG CAP PO SCH ×3 (09:03→22:29)
[2017-07-12] MEDS: CETIRIZINE 10 MG TAB PO SCH (09:10)
[2017-07-12] MEDS: predniSONE 10 MG TAB PO SCH (09:10)
[2017-07-12] MEDS: CHOLECALCIFEROL VIT D3 2,000 UNITS TAB/CAP PO SCH (09:10)
[2017-07-12] MEDS: guaiFENesin 600 MG TAB.ER PO SCH ×2 (09:11→20:41)
[2017-07-12] MEDS: MULTIVITAMINS 1 EACH TAB PO SCH (09:11)
[2017-07-12] MEDS: ASCORBIC ACID 500 MG TAB PO SCH (09:11)
[2017-07-12] MEDS: ENOXAPARIN 40 MG/0.4 ML SYR SC SCH (09:11)
[2017-07-12] MEDS ORDERED: FLU VACC QS 2017-18 (3YR+)/PF 0.5 ML SYR (FLUARIX QUAD) IM ONE (12:03)
[2017-07-12] MEDS: ALBUTEROL 3 ML DEYVIAL IH SCH ×3 (13:18→20:49)
--- NOTE | 2017-07-12 17:01 | HOSPPROG ---
Hospitalist Progress Note Assessment/Plan: * Acute on chronic respiratory failure due to end stage ILD -sats only mid 80s despite BIPAP -baseline 15-17 L O2 -on lung transplant list at - likely transfer there next 1-2 days * Pulmonary HTN * Borderline troponin - likely strain due to respiratory failure * ILD - chronic prednisone - continue * Obesity - BMI 30 Subjective: no change Objective: Vital Signs Temp Pulse Resp BP Pulse Ox 37.2 C 109 H 31 H 119/71 97 07/12/17 11:33 07/12/17 15:56 07/12/17 15:56 07/12/17 08:25 07/12/17 15:56 Microbiology 07/12/17 04:12 Respiratory Panel (PCR) - Final Nasal, Sinus - Swab No Organism Detected Laboratory Results 07/12/17 04:10 07/12/17 04:10 07/11/17 07/12/17 07/13/17 05:59 05:59 05:59 Intake Total 300 Output Total 1325 Balance -1025 d/w Jian Rapp - eventual transfer to for lung transplant CXR viewed, my personal interpretation is - bilateral infiltrates - severe - Physical Exam Constitutional: appears nourished, not in pain, No no apparent distress Cardiovascular: tachycardia, No systolic murmur, No JVD, No edema Respiratory: inspiratory crackles, respiratory distress, No expiratory wheeze, No rhonchi Gastrointestinal: normoactive bowel sounds, soft, non-tender abdomen, no palpable masses Skin: no rashes or abrasions, no fluctuance, no induration Neurologic: AAOx3, sensation intact bilaterally Psychiatric: interacting appropriately, not anxious, not encephalopathic, thought process linear ICD10 Worksheet Patient Problems: Problems Problem Status Onset Hypoxemia Acute Pulmonary fibrosis Acute Interstitial lung disease Acute SVT (supraventricular tachycardia) Acute
--- NOTE | 2017-07-12 17:21 | ASMTCMCOM ---
CM Note CM Note Notes: 66 year old male admitted for Pulmonary fibrosis, SVT, SOB, Pulmonary HTN. Has a hx of interstitial lung disease. Patient needs 15-17 lits of O2 at home desats with activity. Needs a transplant. Patient has also been working with MD's at the [facility]. CM to follow. Date Signed: 07/12/2017 05:20 PM Electronically Signed By:Loren Abraham LCSW
--- NOTE | 2017-07-12 17:55 | GCON ---
[f rep st] CONSULTATION PULMONARY CRITICAL CARE CONSULTATION REASON FOR CONSULTATION: Interstitial lung disease, increasing shortness of breath, and hypoxemia. HISTORY: The patient is a very pleasant 66-year-old gentleman who is well known to me. I have followed him in the office for more than the last year. He has severe and slowly progressive interstitial lung disease. This is secondary to idiopathic pulmonary fibrosis. He has been on pirfenidone which slowed the progression of his disease but has not halted it. Vital capacity within the last month had dropped to approximately 1.7 L, 35% of predicted. He also has secondary pulmonary hypertension. His last cardiac echo done here showed a right ventricular systolic pressure of approximately 50 in September of this year. He had a recent cardiac echo and cardiac catheterization at [facility] as part of his transplant workup. Over the last number of months, he has had progressive dyspnea and hypoxemia. He has recently been on a double O2 setup and will still desaturate into the 50s or 60s with activity. He has become less and less active and has difficulty doing any of his activities of daily living, including just going from the couch to the bathroom secondary to shortness of breath. He has been evaluated by the [facility] Trans[facility] at the [facility], seen by Dr. Jigar Crawford. He is being listed today. All the pre-listing requirements have been met. He has been on prednisone without significant improvement in his pulmonary status. He remains on 10 mg per day. He may have a component of COPD as well, but without significant emphysema. He did smoke cigarettes. He is on albuterol as needed along with guaifenesin. On coming in, there are no acute obvious precipitating factors for his admission other than progressive pulmonary failure. He has been treated with high-flow oxygen including Vapotherm which she did not like. He is currently using his CPAP mask.. He has no fevers, chills, or sweats. He generally coughs up a small amount of grayish mucus in the morning. This is not changed.. There is no obvious congestive heart failure. He did receive 1 dose of 20 mg Lasix on admission with good diuresis. He does have known pulmonary hypertension and associated diastolic dysfunction. He also has a history of supraventricular tachycardia and is status post successful ablation. PAST MEDICAL HISTORY: Remarkable for issues as outlined above, including advancing idiopathic pulmonary fibrosis; SVT, status post ablation; allergies; hypothyroidism on replacement; and obstructive sleep apnea on nasal CPAP. HOME MEDICATIONS: Prednisone at 10 mg per day, guaifenesin, diclofenac, albuterol HFA, guaifenesin, Seroquel, Zyrtec, Synthroid, and pirfenidone. SOCIAL HISTORY: The patient is , with a very supportive . He is no longer smoking. Significant alcohol is negative. PHYSICAL EXAMINATION: GENERAL: Reveals a gentleman lying in bed on nasal BiPAP. He appears relatively comfortable. He will occasionally have a harsh cough. VITAL SIGNS: Blood pressure is approximately 120/70, heart rate 100 with sinus tachycardia on the monitor. Saturations are 93% on BiPAP with 15 L of oxygen. He is afebrile. HEENT: Unremarkable for lymphadenopathy or thyromegaly. There is no obvious jugular venous distention. CHEST: Reveals diminished excursions bilaterally with fine bibasilar rales [address] bilaterally. There are no rhonchi, no wheezes. HEART: Regular with sinus tachycardia on the monitor. There is a soft systolic murmur, increased P2. ABDOMEN: Soft, somewhat overweight, and nontender. Bowel sounds are present. EXTREMITIES: Unremarkable for significant edema. There are no cords, no tenderness. NEUROLOGIC: Intact. IMAGING: Chest x-ray on admission shows hypoventilatory changes with diffuse interstitial disease. LABORATORY: White blood cell count 11,800, hematocrit 39.8. Platelets are normal. Chemistries are within normal limits with a nonspecifically elevated troponin at 0.08. BNP is 1450. ASSESSMENT AND PLAN: Severe interstitial lung disease. The patient has advancing idiopathic pulmonary fibrosis, unresponsive to therapy. He has progressively declined over the last 6 months and comes in now with severe dyspnea with any exertional activity and hypoxemia. No acute precipitating factors are identified. I feel this is progression of his interstitial disease to the point where he is profoundly debilitated. At this point, he will need lung transplantation and I doubt that he will be able to return home prior to this happening. I have discussed with his transplant physician, Dr. Crawford. In the next few days will try to make arrangements for his transfer to the [facility] to await transplant. He has improved with ventilatory support. CPAP or BiPAP will be continued along with oxygen. Nebulized treatments will be given. Steroids will not be increased at this point in time and no antibiotics appear to be indicated. /[id number]/MODL MTDD
[2017-07-12] MEDS ORDERED: HYDROcodone/CPM TUSSIONEX 5 ML UDSYR PO PRN (20:18)
[2017-07-12] MEDS ORDERED: QUEtiapine FUMARATE 50 MG TAB PO SCH ×2 (21:00)
[2017-07-13] MEDS: GUAIFENESIN PO PRN ×2 (01:53→08:09)
[2017-07-13] MEDS: PHENYLEPHRINE PO PRN ×2 (01:53→08:09)
[2017-07-13] MEDS: ALBUTEROL 3 ML DEYVIAL IH SCH ×2 (06:15→10:00)
[2017-07-13] MEDS: LEVOTHYROXINE 137 MCG TAB PO SCH (06:24)
[2017-07-13] MEDS: PIRFENIDONE 267 MG PO SCH (06:25)
[2017-07-13] MEDS: CHOLECALCIFEROL VIT D3 2,000 UNITS TAB/CAP PO SCH (08:58)
[2017-07-13] MEDS: ENOXAPARIN 40 MG/0.4 ML SYR SC SCH (08:58)
[2017-07-13] MEDS: ASCORBIC ACID 500 MG TAB PO SCH (08:58)
[2017-07-13] MEDS: CETIRIZINE 10 MG TAB PO SCH (08:59)
[2017-07-13] MEDS: MULTIVITAMINS 1 EACH TAB PO SCH (08:59)
[2017-07-13] MEDS: guaiFENesin 600 MG TAB.ER PO SCH (08:59)
[2017-07-13] MEDS: predniSONE 10 MG TAB PO SCH (08:59)
[2017-07-13] MEDS: OMEGA-3 FATTY ACIDS 1,000 MG CAP PO SCH (09:03)
[2017-07-13 10:09] VITALS: BP 120/78; RESP 24; TEMP 99.7
[2017-07-13 10:14] VITALS: PULSE 111; O2SAT 94
--- NOTE | 2017-07-13 11:09 | PDINTPN ---
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 Progressive since diagnosis, now critical with severe dyspnea on exertion and desaturation with any exertional activity despite high-flow oxygen. He has been listed for transplantation. He will be transferred to [facility] to await transplantation. Hopefully this can be achieved. Pulmonary hypertension: Secondary to 1. His last echo and cardiac catheterization were done at the [place] as part of his transplant workup. I do not have those results currently. In September his right ventricular systolic pressure was approximately 50. Obstructive sleep apnea: Well controlled with nasal CPAP. His last data download showed a usage of over 7 hours per night and an apnea-hypopnea index of 3. We tried him on BiPAP here. He felt it was not of significant additional benefit at this time and felt that it gave him some chest discomfort. Possible COPD. His interstitial disease has dominated his pulmonary problems. He did smoke cigarettes in the past and appears to have a small reversible component. On bronchodilator therapies. Plan: Continue present supportive care and respiratory support including high- flow oxygen, CPAP, and bronchodilator therapies. To transfer to [facility] today to the advanced lung service. He will await transplant there. I have spoken to Walter Lane MD who will be his accepting physician. Subjective: Did okay overnight. On high-flow oxygen and CPAP. Some a.m. cough with greyish mucus: His pattern, not increasing. Objective: Vital Signs Temp Pulse Resp BP Pulse Ox 37.6 C 111 H 24 H 120/78 94 07/13/17 10:00 07/13/17 10:01 07/13/17 10:00 07/13/17 10:00 07/13/17 10:01 Microbiology 07/12/17 04:12 Respiratory Panel (PCR) - Final Nasal, Sinus - Swab No Organism Detected Laboratory Results 07/12/17 04:10 07/12/17 04:10 07/12/17 07/13/17 07/14/17 05:59 05:59 05:59 Intake Total 300 1150 Output Total 1325 1025 Balance -1025 125 Physical Exam - Physical Exam General Appearance: alert, mild distress (Tachypnea), other (On his nasal CPAP mask) EENT: PERRL/EOMI Neck: normal inspection (No obvious JVD but large neck) Respiratory: decreased breath sounds, rales (Present approximately half the way up, fine, no changes), other (Nasal CPAP with high-flow oxygen in place. Saturations generally high 80s to mid 90s. Will desaturate into 80s with coughing or movement.) Cardiac/Chest: regular rate, rhythm (to tachycardic, sinus. Distant heart tones. Increased P2) Abdomen: normal bowel sounds, non-tender, soft (Overweight) Male Genitalia: other (No Workman catheter. Good urine output) Skin: normal color, warm/dry Extremities: No pedal edema Neuro/Psych: no motor/sensory deficits, No cognition abnormalities ICD10 Worksheet Patient Problems: Problems Problem Status Onset Hypoxemia Acute Pulmonary fibrosis Acute Interstitial lung disease Acute SVT (supraventricular tachycardia) Acute
--- NOTE | 2017-07-13 13:25 | ASDISCHSUM ---
Discharge Information Plan Status:Acute Transfer Medically Cleared to Leave:07/13/2017 Discharge Date:07/13/2017 10:44 AM D/C Disposition:[facility] D/C Disposition:[facility] Projected Discharge Date:07/13/2017 11:00 AM Transportation at D/C:ALS/BLS Discharge Delay Reason: Follow-Up Date:07/13/2017 11:00 AM Discharge Slot:1 - 8:01 am - 12:00 noon Final Diagnosis:Pulmonary fibrosis, SVT, SOB Placement Information Referral Type:Acute Care Referral ID:[id number] Provider Name:[facility] Address 1:[address] Phone Number: [facility] 2: Fax Number: [facility]:Christine Selection Factors: State:[place] Referral Type:Acute Care Referral ID:[id number] Provider Name:[facility] Address 1:[address] Phone Number: [facility] 2: Fax Number: [facility] Selection Factors: State:[place] Patient Contact Information Contact Name:LINDY Relationship: Address:[address] City:[place] Alternate Phone: [facility]/Zip Code:[place] [address] Email: Financial Information Financial Class: Primary Plan Desc:MEDICARE INPATIENT Primary Plan Number:[id number] Secondary Plan Desc: OUT OF STATE [facility] Secondary Plan Number:[id number] Assessment Information [facility] CM Progress Note CM Note CM Note Notes: 66 year old male admitted for Pulmonary fibrosis, SVT, SOB, Pulmonary HTN. Has a hx of interstitial lung disease. Patient needs 15-17 lits of O2 at home desats with activity. Needs a transplant. Patient has also been working with MD's at the [facility]. CM to follow. 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 Accepting MD Dr. Lane. Referral made. Patient has beed discharged. [facility] to transport at 10:30 AM. contacted by patient. Date Signed: 07/13/2017 01:24 PM Electronically Signed By:Loren Abraham LCSW Intervention Information Intervention Type:*IM-Signed Date of Service:07/13/2017 11:21 AM Patient Type:Inpatient Staff Member:Deepika Hartman Hours: Discipline: Severity: Comment:Patient signed transfer to [facility]
--- NOTE | 2017-07-13 13:25 | ASMTCMCOM ---
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 Accepting MD Dr. Lane. Referral made. Patient has beed discharged. [facility] to transport at 10:30 AM. contacted by patient. Date Signed: 07/13/2017 01:24 PM Electronically Signed By:Loren Abraham LCSW
--- NOTE | 2017-07-13 16:34 | GDS ---
[f rep st] DISCHARGE SUMMARY DISCHARGE DIAGNOSES: 1. Kgggf-yh-cpgfuwb respiratory failure. 2. End-stage interstitial lung disease, idiopathic pulmonary fibrosis/pulmonary fibrosis. 3. Pulmonary hypertension. 4. Obstructive sleep apnea with obesity. HISTORY: The patient is a 66-year-old male diagnosed 1 year ago with idiopathic pulmonary fibrosis, who has been wearing 15-17 L of oxygen at home with 2 concentrators. He was recently evaluated at [facility] for lung transplantation. He presents to the hospital with progression of shortnes s of breath and hypoxemia. He is now CPAP dependent continuously and too ill to return home without lung transplantation that is needed. During this hospitalization, he was officially approved and lis briana at [facility]. He was transferred as an inpatient to [facility] for further ca re and hopeful lung transplantation at that time. DISCHARGE MEDICATIONS: Please see computer record for full detailed list. There are no new medicati ons given at time of hospital transfer. DISCHARGE INSTRUCTIONS: Transfer to [facility] for consideration of lung transplantation. Patient seen and examined by me on the day of discharge. /[id number]/MODL
== END 2017-07-13 10:44 | disposition short-term general hospital (02) | DRG 189 ==
LOC: F2N 21:10
PROVIDERS: ADMIT Internal Medicine; ATTEND Internal Medicine
DX: J96.21 Acute and chronic respiratory failure with hypoxia (principal); J84.112 Idiopathic pulmonary fibrosis; I27.20 Pulmonary hypertension, unspecified; E66.9 Obesity, unspecified; G47.33 Obstructive sleep apnea (adult) (pediatric); Z68.30 Body mass index [BMI] 30.0-30.9, adult
CPT/HCPCS: 82947-QW; 97166-GO; G0008; G8987-GO-CK; G8988-GO-CK; J1650; J1940